=== PATIENT | female | born 1960 | race Caucasian/White ===

== ENCOUNTER → 2017-04-18 | Outpatient (CLI) | payer OTHER | LOC: PUL 09:50 | DX: J44.9 Chronic obstructive pulmonary disease, unspecified (principal) ==

== ENCOUNTER → 2017-05-04 | Outpatient (CLI) | payer OTHER ==
--- NOTE | ~2017-05-04 | 2DMMODE ---
[facility] [place] [address] 2 D/M-MODE ECHOCARDIOGRAM Name: MAYFIELDVIDAL Room #: REG [facility]#: [id number] Admission: 05/04/17 Attend Phys: Brett Erickson Discharge: Date of : 58 Date of Service: 05/04/17 1040 Report #: [id number] THIS REPORT FOR: //name// APPROVED REPORT Study performed: 05/04/2017 09:33:15 EXAM: Comprehensive 2D, Doppler, and color-flow Echocardiogram Patient Location: Out-Patient Status: routine BSA: 1.72 HR: 86 bpm BP: 113/87 mmHg Rhythm: Irregular Other Information Study Quality: Technically Difficult Technically limited study due to lung disease. Poor apical window. Indications Palpitations, Pacemaker, COPD, HTN, DM 2D Dimensions LVEF(%): 51.93 (>50%) IVSd: 9.70 (7-11mm) LVOT Diam: 21.27 (18-24mm) LVDd: 31.86 mm PWd: 9.42 (7-11mm) Ascending Ao: 35.96 (22-36mm) LVDs: 23.67 (25-40mm) Aortic Root: 40.55 mm Lassiter's LVEF: 51.93 % Aortic Valve AoV Peak Terrence.: 1.07 m/s AO Peak Gr.: 4.56 mmHg LVOT Max P.28 mmHg LVOT Max V: 0.91 m/s KIRSTIE Vmax: 3.01 cm2 Mitral Valve E/A Ratio: 0.5 MV Decel. Time: 294.86 ms MV E Max Terrence.: 0.57 m/s MV A Terrence.: 1.18 m/s MV PHT: 85.51 ms [facility] [place] [address] 2 D/M-MODE ECHOCARDIOGRAM Name: MAYFIELDVIDAL SOOD Room #: [facility]#: [id number] Admission: 05/04/17 Attend Phys: Brett Erickson Discharge: Date of : 58 Date of Service: 05/04/17 1040 Report #: [id number] IVRT: 69.20 ms Pulmonary Valve PV Peak Terrence.: 0.84 m/s PV Peak Gr.: 2.84 mmHg Tricuspid Valve TR Peak Terrence.: 2.52 m/s RAP Estimate: 5.00 mmHg TR Peak Gr.: 25.47 mmHg PA Pressure: 30.00 mmHg Left Ventricle Left ventricle is small. There is normal left ventricular wall thickness. Left ventricular systolic function is normal. LVEF is 55%. Mild diastolic dysfunction is present (impaired relaxation pattern). Right Ventricle The right ventricle is normal size. The right ventricular systolic function is normal. Pacemaker lead is present in the right ventricle. Atria The left atrium size is normal. The right atrium size is normal. Aortic Valve The aortic valve is normal in structure. No aortic regurgitation is present. There is no aortic valvular stenosis. Mitral Valve The mitral valve is normal in structure. There is no mitral valve regurgitation noted. No evidence of mitral valve stenosis. Tricuspid Valve The tricuspid valve is normal in structure. Mild tricuspid regurgitation. Estimated PAP is 30mmHg. Pulmonic Valve Pulmonic valve is not well visualized. Great Vessels Aortic root is dilated at 4.1cm The ascending aorta is normal in size. IVC is normal in size and collapses >50% with inspiration. Pericardium There is no pericardial effusion. [facility] [address] [place] [address] 2 D/M-MODE ECHOCARDIOGRAM Name: VIDAL MAYFIELD Room #: REG [facility].#: [id number] Admission: 05/04/17 Attend Phys: Brett Erickson Discharge: Date of : 58 Date of Service: 05/04/17 1040 Report #: [id number] <Conclusion> Left ventricle is small. LVEF is 55%. Pacemaker lead is present in the right ventricle. The aortic valve is normal in structure. No aortic regurgitation is present. The mitral valve is normal in structure. There is no mitral valve regurgitation noted. The tricuspid valve is normal in structure. Mild tricuspid regurgitation. Estimated PAP is 30mmHg. Pulmonic valve is not well visualized. Aortic root is dilated at 4.1cm There is no pericardial effusion. <ELECTRONICALLY SIGNED> By: Brett Villarreal MD 05/04/17 1040 39 39 Brett Villarreal MD /INF
== END ==
LOC: CV 08:19
DX: R00.2 Palpitations (principal); I10 Essential (primary) hypertension; E11.9 Type 2 diabetes mellitus without complications

== ENCOUNTER → 2017-07-03 | Outpatient (CLI) | payer OTHER | LOC: SEN 13:17 → RAD 13:17 → SEN 14:47 | DX: S92.354A Nondisplaced fracture of fifth metatarsal bone, right foot, initial encounter for closed fracture (principal); J96.11 Chronic respiratory failure with hypoxia; X58.XXXA Exposure to other specified factors, initial encounter; Y93.89 Activity, other specified; Y92.89 Other specified places as the place of occurrence of the external cause; Y99.8 Other external cause status ==

== ENCOUNTER → 2017-10-12 | Outpatient (CLI) | payer OTHER | LOC: RAD 13:40 | DX: J96.11 Chronic respiratory failure with hypoxia (principal); Z95.0 Presence of cardiac pacemaker ==

== ENCOUNTER → 2017-10-16 | Outpatient (CLI) | payer OTHER | LOC: SLEEPLAB 17:03 | DX: G47.33 Obstructive sleep apnea (adult) (pediatric) (principal) ==

== ENCOUNTER → 2017-11-22 | Outpatient (CLI) | payer OTHER ==
[~2017-11-22] VITALS: Ht 157.5 cm; Wt 63.8 kg
[~2017-11-22] MED LIST: ATIVAN0.5 MG; BREO ELLIPTA 11 EACH; FLEXERIL; HYDROCHLOROTHIA25 M2; HYDROCODONE-AP1 EAC6 PO; LASIX 20 MG TAB20 MG; LYRICA 50 MG50 MG; METFORMIN HCL500 MG; OMEPRAZOLE40 MG; PRADAXA150 MG; REGLAN 10 MG TA10 MG; ZANAFLEX4 M1
[2017-11-22 13:09] VITALS: BP 130/72
== END ==
LOC: SEN
DX: I50.9 Heart failure, unspecified (principal); J44.9 Chronic obstructive pulmonary disease, unspecified; G89.4 Chronic pain syndrome; M54.2 Cervicalgia

== ENCOUNTER → 2018-05-09 | Outpatient (CLI) | payer OTHER ==
[~2018-05-09] MED LIST changes: -LYRICA 50 MG50 MG; +LYRICA150 MG PO; +PROZAC20 MG PO
[2018-05-09 14:57] VITALS: BP 134/80
[2018-05-09 16:31] LABS: ABSOLUTE NEUTROPHILS 6.1 thou/uL (1.4-8.2); BASOPHILS 1.2 % (0.0-2.0); EOSINOPHILS 3.5 % (0.0-3.0); HEMATOCRIT 39.4 % (37.0-47.0); HEMOGLOBIN 13.4 gm/dL (12.0-15.0); MCH 26.2 pg (26.0-34.0); MCHC 33.9 g/dL (28.0-37.0); MCV 77.3 fL (80.0-100.0); MONOCYTES 6.1 % (1.0-8.0); PLATELET COUNT 589 thou/uL (150-400); POLYS 56.2 % (36.0-66.0); RDW 15.2 % (10.5-14.5); WBC 10.9 thou/uL (4.0-11.0)
[2018-05-09 16:40] LABS: ALBUMIN 3.6 g/dL (3.4-5.0); ANION GAP 10 mmol/L (7-16); BUN 14 mg/dL (7-18); CALCIUM 9.3 mg/dL (8.5-10.1); CHLORIDE 95 mmol/L (98-107); CHOLESTEROL 241 mg/dL (<200); CO2 31 mmol/L (21-32); GLUCOSE 97 mg/dL (74-106); HDL CHOLESTEROL 41 mg/dL (>40); LDL CHOLESTEROL 154 mg/dL (<100); SGOT 17 U/L (15-37); SGPT 19 U/L (30-65); SODIUM 136 mmol/L (136-145); TC:HDL 5.9 Ratio (Not establshd); TOTAL BILIRUBIN 0.3 mg/dL (<0.1-1.0); TOTAL PROTEIN 8.3 g/dL (6.4-8.2); TRIGLYCERIDE 233 mg/dL (<150); VLDL 47 mg/dL (<40)
[2018-05-09 16:44] LABS: POTASSIUM 2.8 mmol/L (3.5-5.1)
[2018-05-09 22:05] LABS: GLYCOHEMOGLOBIN (HGB A1C) 5.9 % (4.8-5.6)
[2018-05-09 23:07] LABS: CREATININE (ALB/CR) 14.5 mg/dL (Not Estab.); MICROALB:CREAT 45.5 (0.0-30.0); MICROALBUMIN-RND URINE 6.6 ug/mL (Not Estab.)
== END ==
LOC: SEN 08:19
PROVIDERS: Emergency Medicine
DX: Z09 Encounter for follow-up examination after completed treatment for conditions other than malignant neoplasm (principal); E11.9 Type 2 diabetes mellitus without complications; E78.5 Hyperlipidemia, unspecified; J44.9 Chronic obstructive pulmonary disease, unspecified; M79.7 Fibromyalgia; K21.9 Gastro-esophageal reflux disease without esophagitis; M19.90 Unspecified osteoarthritis, unspecified site; M81.0 Age-related osteoporosis without current pathological fracture

== ENCOUNTER → 2018-05-14 | Outpatient (CLI) | payer OTHER ==
[2018-05-14 19:52] LABS: CALCIUM 9.9 mg/dL (8.5-10.1); POTASSIUM 3.4 mmol/L (3.5-5.1)
== END ==
LOC: SEN 08:12
PROVIDERS: Emergency Medicine
DX: E87.6 Hypokalemia (principal)

== ENCOUNTER → 2018-07-24 | Outpatient (CLI) | payer OTHER ==
--- NOTE | 2018-07-24 12:56 | 2DMMODE ---
[facility] [place] [place] [address] 2 D/M-MODE ECHOCARDIOGRAM Name: VIDAL MAYFIELD Room #: REG [facility]#: [id number] Admission: 07/24/18 Attend Phys: Brett Erickson Discharge: Date of : 58 Date of Service: 07/24/18 1255 Report #: [id number] THIS REPORT FOR: //name// APPROVED REPORT Study performed: 07/24/2018 11:54:13 EXAM: Comprehensive 2D, Doppler, and color-flow Echocardiogram Patient Location: Out-Patient Room #: Echo lab 2 Status: routine BSA: 1.64 HR: 63 bpm BP: 110/78 mmHg Rhythm: Pacemaker Other Information Study Quality: Adequate Indications Atrial Fibrillation Pacemaker 2D Dimensions RVDd: 40.70 mm IVSd: 7.90 (7-11mm) LVOT Diam: 21.52 (18-24mm) LVDd: 41.42 mm PWd: 8.96 (7-11mm) Ascending Ao: 33.65 (22-36mm) LVDs: 27.92 (25-40mm) Aortic Root: 33.54 mm IVC: 20.00 mm Volumes Left Atrial Volume (Systole) Single Plane 4CH: 19.78 mL Single Plane 2CH: 29.04 mL LA ESV Index: 18.00 mL/m2 Aortic Valve AoV Peak Terrence.: 0.97 m/s AO Peak Gr.: 3.79 mmHg LVOT Max P.16 mmHg LVOT Max V: 0.89 m/s KIRSTIE Vmax: 3.32 cm2 Mitral Valve E/A Ratio: 0.7 MV Decel. Time: 237.[address] [facility] [employer] ([place]) [place] [address] 2 D/M-MODE ECHOCARDIOGRAM Name: VIDAL MAYFIELD Room #: [facility]#: [id number] Admission: 07/24/18 Attend Phys: Brett Erickson Discharge: Date of : 58 Date of Service: 07/24/18 1255 Report #: [id number] MV E Max Terrence.: 0.60 m/s MV A Terrence.: 0.82 m/s MV PHT: 68.97 ms IVRT: 143.02 ms Pulmonary Valve PV Peak Terrence.: 0.64 m/s PV Peak Gr.: 1.62 mmHg Pulmonary Vein P Vein S: 0.53 m/s P Vein A: 0.35 m/s P Vein D: 0.46 m/s P Vein A Dur.: 110.7 msec P Vein S/D Ratio: 1.15 Tricuspid Valve TR Peak Terrence.: 2.71 m/s TR Peak Gr.: 29.47 mmHg PA Pressure: 39.00 mmHg Left Ventricle The left ventricle is normal size. There is normal left ventricular wall thickness. The left ventricular systolic function is normal. The left ventricular ejection fraction is within the normal range. LVEF is 55-60%. Grade I - abnormal relaxation pattern. Right Ventricle The right ventricle is normal size. The right ventricular systolic function is normal. Pacemaker lead is present in the right ventricle. Atria The left atrium size is normal. Right atrium is dilated. Pacemaker lead is present in the right atrium. Aortic Valve The aortic valve is normal in structure. No aortic regurgitation is present. There is no aortic valvular stenosis. Mitral Valve The mitral valve is normal in structure. Trace mitral regurgitation. No evidence of mitral valve stenosis. Tricuspid Valve The tricuspid valve is normal in structure. There is mild tricuspid regurgitation. Estimated PAP 39 mmHg. There is mild pulmonary hypertension. Pulmonic Valve [address] [address] 2 D/M-MODE ECHOCARDIOGRAM Name: RUI MAYFIELDNitesh Holt Room #: REG [facility]#: [id number] Admission: 07/24/18 Attend Phys: Brett Erickson Discharge: Date of : 58 Date of Service: 07/24/18 1255 Report #: [id number] The pulmonary valve is normal in structure. There is no pulmonic valvular regurgitation. Great Vessels Aortic root is upper limits of normal in size. Ascending aorta is normal in caliber. IVC is dilated and collapses >50% with inspiration. Pericardium There is no pericardial effusion. <Conclusion> The left ventricle is normal size. LVEF is 55-60%. Pacemaker lead is present in the right ventricle. Right atrium is dilated. Pacemaker lead is present in the right atrium. The aortic valve is normal in structure. The mitral valve is normal in structure. Trace mitral regurgitation. The tricuspid valve is normal in structure. There is mild tricuspid regurgitation. Estimated PAP 39 mmHg. There is mild pulmonary hypertension. The pulmonary valve is normal in structure. There is no pericardial effusion. <ELECTRONICALLY SIGNED> By: Brett Villarreal MD 07/24/18 1255 1255 1255 Brett Villarreal MD /INF
== END ==
LOC: CV 11:28
DX: I07.1 Rheumatic tricuspid insufficiency (principal); I48.0 Paroxysmal atrial fibrillation; I27.20 Pulmonary hypertension, unspecified; Z95.0 Presence of cardiac pacemaker

== ENCOUNTER → 2018-09-05 | Outpatient (CLI) | payer OTHER ==
[2018-09-05 16:17] LABS: ABSOLUTE NEUTROPHILS 6.3 thou/uL (1.4-8.2); BASOPHILS 1.1 % (0.0-2.0); EOSINOPHILS 3.9 % (0.0-3.0); HEMATOCRIT 38.8 % (37.0-47.0); HEMOGLOBIN 12.5 gm/dL (12.0-15.0); LYMPHOCYTES 34.8 % (24.0-44.0); MCH 24.9 pg (26.0-34.0); MCHC 32.1 g/dL (28.0-37.0); MCV 77.4 fL (80.0-100.0); MONOCYTES 7.4 % (1.0-8.0); PLATELET COUNT 531 thou/uL (150-400); POLYS 52.8 % (36.0-66.0); RBC 5.02 mil/uL (4.20-5.00)
[2018-09-05 16:28] LABS: ALBUMIN 3.1 g/dL (3.4-5.0); ANION GAP 8 mmol/L (7-16); BUN 12 mg/dL (7-18); CHLORIDE 101 mmol/L (98-107); CHOLESTEROL 238 mg/dL (<200); CO2 30 mmol/L (21-32); GLUCOSE 94 mg/dL (74-106); HDL CHOLESTEROL 35 mg/dL (>40); LDL CHOLESTEROL 130 mg/dL (<100); SGOT 18 U/L (15-37); SGPT 19 U/L (30-65); SODIUM 139 mmol/L (136-145); TC:HDL 6.8 Ratio (Not establshd); TOTAL BILIRUBIN 0.3 mg/dL (<0.1-1.0); TOTAL PROTEIN 7.5 g/dL (6.4-8.2); TRIGLYCERIDE 368 mg/dL (<150); VLDL 74 mg/dL (<40)
== END ==
LOC: SEN 13:53
PROVIDERS: Nurse Practitioner Family
DX: E11.9 Type 2 diabetes mellitus without complications (principal); E78.5 Hyperlipidemia, unspecified; J44.9 Chronic obstructive pulmonary disease, unspecified; M79.7 Fibromyalgia

== ENCOUNTER → 2018-09-19 | Outpatient (CLI) | payer OTHER | LOC: SEN 08-01 10:07 | DX: E11.42 Type 2 diabetes mellitus with diabetic polyneuropathy (principal); F41.9 Anxiety disorder, unspecified; I10 Essential (primary) hypertension; E78.5 Hyperlipidemia, unspecified; K21.9 Gastro-esophageal reflux disease without esophagitis ==

== ENCOUNTER → 2018-12-26 | Outpatient (CLI) | payer OTHER | LOC: SEN 12:29 | DX: I10 Essential (primary) hypertension (principal); J44.9 Chronic obstructive pulmonary disease, unspecified; E11.40 Type 2 diabetes mellitus with diabetic neuropathy, unspecified; F41.9 Anxiety disorder, unspecified ==

== ENCOUNTER → 2019-01-09 | Outpatient (CLI) | payer OTHER | LOC: SEN 12:28 | DX: Z09 Encounter for follow-up examination after completed treatment for conditions other than malignant neoplasm (principal); I10 Essential (primary) hypertension; E11.40 Type 2 diabetes mellitus with diabetic neuropathy, unspecified; J44.9 Chronic obstructive pulmonary disease, unspecified; F41.9 Anxiety disorder, unspecified ==

== ENCOUNTER → 2019-07-31 | Outpatient (CLI) | payer OTHER | END | disposition home or self-care (01) | LOC: SJCVC 11:06 | DX: I48.0 Paroxysmal atrial fibrillation (principal); E11.9 Type 2 diabetes mellitus without complications; R94.31 Abnormal electrocardiogram [ECG] [EKG]; J44.9 Chronic obstructive pulmonary disease, unspecified; I49.5 Sick sinus syndrome; Z95.0 Presence of cardiac pacemaker; Z79.899 Other long term (current) drug therapy; M81.0 Age-related osteoporosis without current pathological fracture; Z90.710 Acquired absence of both cervix and uterus; F17.210 Nicotine dependence, cigarettes, uncomplicated ==

== ENCOUNTER 2019-09-11 09:46 | Emergency (ER) | payer OTHER ==
[~2019-09-11] VITALS: Ht 157.5 cm; Wt 65.3 kg
[2019-09-11 11:47] LABS: ABSOLUTE NEUTROPHILS 9.5 thou/uL (1.4-8.2); BASOPHILS 1.2 % (0.0-2.0); EOSINOPHILS 0.8 % (0.0-3.0); HEMATOCRIT 46.3 % (37.0-47.0); HEMOGLOBIN 14.7 gm/dL (12.0-15.0); LYMPHOCYTES 12.5 % (24.0-44.0); MCH 25.4 pg (26.0-34.0); MCHC 31.8 g/dL (28.0-37.0); MCV 79.8 fL (80.0-100.0); MONOCYTES 5.2 % (1.0-8.0); PLATELET COUNT 475 thou/uL (150-400); POLYS 80.3 % (36.0-66.0); RBC 5.81 mil/uL (4.20-5.00); RDW 17.5 % (10.5-14.5); WBC 11.8 thou/uL (4.0-11.0)
[2019-09-11 11:52] LABS: ANION GAP 9 mmol/L (7-16); BUN 7 mg/dL (7-18); CHLORIDE 100 mmol/L (98-107); CO2 28 mmol/L (21-32); GLUCOSE 137 mg/dL (74-106); POTASSIUM 3.4 mmol/L (3.5-5.1); SODIUM 137 mmol/L (136-145)
[2019-09-11 12:02] LABS: ALBUMIN 3.7 g/dL (3.4-5.0); MAGNESIUM 2.5 mg/dL (1.8-2.4); SGOT 27 U/L (15-37); SGPT 22 U/L (30-65); TOTAL BILIRUBIN 0.8 mg/dL (<0.1-1.0); TOTAL PROTEIN 7.8 g/dL (6.4-8.2); TROPONIN-I <0.06 ng/mL (<0.06)
[2019-09-11 12:54] VITALS: BP 139/72
--- NOTE | 2019-09-12 09:33 | EKG ---
[facility] [place] [address] ELECTROCARDIOGRAM REPORT Name: VIDAL MAYFIELD Room #: [facility]#: [id number] Admission: 09/11/19 Attend Phys: Discharge: 09/11/19 Date of : 58 Report #: [id number] THIS REPORT FOR: cc: Piotr Castorena MD, Shyam MD Lundgren,Luis F Arreaga MD [facility] ~ THIS REPORT FOR: //name// [facility] ED Test Date: 2019-09-11 Test Time: 12:07:10 Pat Name: VIDAL AMYFIELD Department: Room: Gender: F [employer] Justice: THOM : 1960 Requested By: Isaac Briceno Order Number: [id number] MD: Luis F Graham Measurements Intervals [place] Rate: 68 P: 67 [place]: 237 QRS: -53 QRSD: 97 T: 69 QT: 464 QTc: 494 Interpretive Statements Sinus rhythm Atrial premature complexes in couplets Prolonged OH interval Inferior infarct, old Poor R wave progression No previous ECG available for comparison Electronically Signed On 09-12-2019 9:32:29 SPANISH INTERPRETER/TRANSLATOR by Luis F Graham [email or web address] <ELECTRONICALLY SIGNED> By: Luis F Graham MD, [facility] 09/12/19 0932 1207 [id number] Luis F Graham MD, [facility] /EPI
== END 2019-09-11 12:57 | disposition home or self-care (01) ==
LOC: ER 09:46
PROVIDERS: Emergency Medicine
DX: R11.2 Nausea with vomiting, unspecified (principal); J44.9 Chronic obstructive pulmonary disease, unspecified; J06.9 Acute upper respiratory infection, unspecified; R19.7 Diarrhea, unspecified; G89.29 Other chronic pain; M79.7 Fibromyalgia; K21.9 Gastro-esophageal reflux disease without esophagitis; E78.5 Hyperlipidemia, unspecified; M19.90 Unspecified osteoarthritis, unspecified site; G47.33 Obstructive sleep apnea (adult) (pediatric); E11.9 Type 2 diabetes mellitus without complications; F17.210 Nicotine dependence, cigarettes, uncomplicated

== ENCOUNTER → 2020-05-20 | Outpatient (CLI) | payer OTHER | LOC: CAT 10:26 | PROVIDERS: ATTEND Nurse Practitioner | DX: J43.9 Emphysema, unspecified (principal); I51.7 Cardiomegaly; I31.3 Pericardial effusion (noninflammatory); J98.4 Other disorders of lung; K76.89 Other specified diseases of liver ==

== ENCOUNTER → 2020-08-05 | Outpatient (CLI) | payer OTHER | LOC: SJCVCIMAG 08:27 | PROVIDERS: ATTEND Internal Medicine | DX: I73.9 Peripheral vascular disease, unspecified (principal); M79.661 Pain in right lower leg; M79.89 Other specified soft tissue disorders; F17.200 Nicotine dependence, unspecified, uncomplicated; Z90.710 Acquired absence of both cervix and uterus; Z79.899 Other long term (current) drug therapy ==